=== PATIENT | female | born 1970 | race Caucasian/White ===

== ENCOUNTER → 2018-08-25 08:41 | Outpatient (CLI) | payer OTHER, SELFPAY ==
--- NOTE | 2018-08-25 | DI.MG.S_ITS ---
BILATERAL DIGITAL DIAGNOSTIC MAMMOGRAM 3D/2D: 08/25/2018 CLINICAL: Left breast Pain. Comparison is made to exam dated: 06/12/2014 mammogram - [facility]. There are scattered fibroglandular elements in both breasts. No suspicious mammographic findings to explain patient's left breast pain or nipple retraction. No significant masses, calcifications, or other findings are seen in either breast. IMPRESSION: INCOMPLETE: NEEDS ADDITIONAL IMAGING EVALUATION No mammographic abnormalities in either breast. Further evaluation of left breast pain and nipple changes with ultrasound is recommended and was performed immediately following this study. This exam was interpreted at Station ID: [id number]. NOTE: For mammograms, a report in lay terms will be sent to the patient. Approximately 15% of breast malignancies will not be visualized mammographically. In the management of a palpable breast mass, a negative mammogram must not discourage biopsy of a clinically suspicious lesion. Electronically Signed By: Iliana neumann/:08/25/2018 10:56:45 ACR BI-RADS Category 0: Incomplete [id number]
--- NOTE | 2018-08-25 | DI.US.S_ITS ---
LIMITED ULTRASOUND OF LEFT BREAST: 08/25/2018 CLINICAL: Focal left breast pain. Comparison is made to exams dated: 08/25/2018 mammogram - [facility] and 06/12/2014 mammogram - [facility] [place]. Ultrasound of the left breast inner aspect was performed. No abnormalities were seen sonographically in the left breast. IMPRESSION: PROBABLY BENIGN There is no sonographic evidence of malignancy. No findings to explain patient's pain or nipple changes. A follow-up left breast mammogram in 6 months is recommended to ensure stability. Additionally, the patient should follow up sooner with her primary care doctor if there are any further changes to the left breast skin or nipple. Findings and recommendations conveyed to the patient. This exam was interpreted at Station ID: [id number]. Electronically Signed By: Iliana neumann/:08/25/2018 11:08:22 letter sent: Followup Recommended Ultrasound BI-RADS: 3 Probably benign
== END ==
LOC: MAMMO 08:45
PROVIDERS: PCP Registered Nurse; Visit Provider Registered Nurse
DX: R92.8 Other abnormal and inconclusive findings on diagnostic imaging of breast (principal); N64.4 Mastodynia
CPT/HCPCS: 76642; 77066; G0279